=== PATIENT | male | born 1990 | race Caucasian/White ===

== ENCOUNTER 2017-02-15 02:42 | Emergency (ER) | payer SELFPAY ==
[~2017-02-15] VITALS: Ht 175.3 cm; Wt 68.6 kg
[~2017-02-15 02:42] MED LIST: DIVA500T52 PO; RISP2 PO
[2017-02-15 04:16] VITALS: BP 130/68
== END 2017-02-15 04:18 | disposition home or self-care (01) ==
LOC: EMS 02:42
DX: R06.00 Dyspnea, unspecified (principal); R07.9 Chest pain, unspecified
CPT/HCPCS: 93005; 99284

== ENCOUNTER 2025-08-08 08:52 | Emergency (ER) | payer BC ==
[~2025-08-08] VITALS: Ht 175.3 cm; Wt 74.0 kg
[2025-08-08 09:10] VITALS: TEMP 97.9
[2025-08-08 09:25] VITALS: BP 125/76; PULSE 72; RESP 18; O2SAT 99
[2025-08-08 09:35] LABS: PLATELET COUNT (AUTO) 279 K/uL (150-450); RED BLOOD CELL COUNT(AUTO) 5.53 MIL/uL (4.50-5.90); RED CELL DISTRIBUTION WIDTH 13.2 % (11.5-14.5); WHITE BLOOD COUNT (AUTO) 7.0 K/uL (4.5-11.0)
[2025-08-08 09:44] LABS: CALCIUM, TOTAL 8.9 mg/dL (8.8-10.5); CREATININE 1.52 mg/dL (0.60-1.30); GLOMERULAR FILTR. RATE CALC 53.0 mL/min (>60); GLUCOSE,RANDOM 113.0 mg/dL (70-110); SODIUM SERUM 136.0 mmol/L (136-145); UREA NITROGEN, BLOOD 11.0 mg/dL (7-18)
[2025-08-08 09:57] LABS: APPEARANCE,URINE CLEAR (CLEAR); GLUCOSE, URINE (UA) NEGATIVE (NEGATIVE); LEUKOCYTE ESTERASE ,URINE NEGATIVE (NEGATIVE); NITRATE,URINE NEGATIVE (NEGATIVE); OCCULT BLOOD,URINE NEGATIVE (NEGATIVE); SPECIFIC GRAVITIY, URINE 1.025 (1.003-1.030)
[2025-08-08] MEDS ORDERED: POLY119P3 PO (10:24)
== END 2025-08-08 10:43 | disposition home or self-care (01) ==
LOC: EMS 09:08
DX: R10.32 Left lower quadrant pain (principal); S30.13XA Contusion of flank (latus) region, initial encounter; K59.00 Constipation, unspecified; X58.XXXA Exposure to other specified factors, initial encounter; Y93.89 Activity, other specified; Y92.89 Other specified places as the place of occurrence of the external cause; Y99.8 Other external cause status
CPT/HCPCS: 80048; 81001; 83690; 85025; 99283